=== PATIENT | male | born 1945 | race Caucasian/White ===

== ENCOUNTER 2018-12-12 09:14 | Day surgery (SDC) | payer OTHER ==
[~2018-12-12] VITALS: Ht 180.3 cm; Wt 108.9 kg
[~2018-12-12 09:14] MED LIST: HYDROmorphone 2 MG/ML VIAL IV PRN; LIDOCAINE 1% PF 2 ML VIAL. ID PRN; MORPHINE SULFATE 2 MG/ML VIAL. IV PRN; ONDANSETRON PF 4 MG/2 ML VIAL. IV PRN; PROCHLORPERAZINE 10 MG/2 ML VIAL. IV PRN; fentaNYL PF VIAL 100 MCG/2 ML VIAL IV PRN
[2018-12-12] MEDS ORDERED: ASPI-630 PO (09:45)
[2018-12-12] MEDS ORDERED: SIMV80TA17 PO (09:45)
[2018-12-12] MEDS ORDERED: METO-269 PO (09:45)
[2018-12-12] MEDS ORDERED: MULT1TAB52 PO (09:50)
[2018-12-12] MEDS ORDERED: TAMS0.4C97 PO (09:50)
[2018-12-12] MEDS ORDERED: LISI10TA2 PO (09:50)
[2018-12-12] MEDS ORDERED: LACT1CAP2 PO (09:50)
[2018-12-12] MEDS ORDERED: SERT100T8 PO (09:50)
[2018-12-12] MEDS ORDERED: HYDR12.575 PO (09:50)
[2018-12-12] MEDS ORDERED: METH-37 PO (09:50)
[2018-12-12] MEDS ORDERED: DOCU100C28 PO (09:50)
[2018-12-12] MEDS ORDERED: CHLORHEXIDINE 0.12% 15 ML MOUTHWASH. SWSP ONE (10:00)
[2018-12-12] MEDS ORDERED: OXYMETAZOLINE 0.05% NASAL SPRAY 30ML BOTTLE. NS ONE (10:00)
[2018-12-12] MEDS: IV RINGERS,LACTATED 1000ML 1,000 ML IV SCH ×2 (10:13→14:24)
[2018-12-12] MEDS ORDERED: PROPOFOL 20 ML IV ONE ×2 (10:35→12:48)
[2018-12-12] MEDS ORDERED: fentaNYL PF VIAL 100 MCG/2 ML VIAL ONE (10:35)
[2018-12-12] MEDS ORDERED: ROCURONIUM 50 MG/5 ML VIAL. ONE (10:35)
[2018-12-12] MEDS ORDERED: DEXAMETHASONE SOD PHOS 4 MG/ML VIAL ONE (10:35)
[2018-12-12] MEDS ORDERED: SUCCINYLCHOLINE 200 MG/10 ML VIAL. ONE (10:35)
[2018-12-12] MEDS ORDERED: LIDOCAINE 2% PF 5 ML VIAL. ONE (10:35)
[2018-12-12] MEDS ORDERED: BUPIVAC MPF-EPI 0.5%-1:200000 30 ML VIAL. ONE (11:19)
[2018-12-12] MEDS ORDERED: SURGICEL HEMOSTAT 4X8 EACH. ONE (11:19)
[2018-12-12] MEDS ORDERED: BACITRACIN 50,000 UNIT in IV NORMAL SALINE 500ML BAG 500 ML IRR ONE (11:30)
[2018-12-12] MEDS ORDERED: CHLORHEXIDINE 0.12% 15 ML MOUTHWASH. ONE (11:32)
[2018-12-12] MEDS ORDERED: ceFAZolin 2GM PREMIX 2 GM/50 ML BAG IV ONE (12:00)
[2018-12-12] MEDS ORDERED: ePHEDrine PF IN SALINE 50 MG/10 ML SYRINGE. IV ONE (12:43)
[2018-12-12] MEDS ORDERED: PHENYLEPHRINE in 0.9% NACL PF 1 MG/10 ML SYRINGE. IV ONE (12:50)
[2018-12-12] MEDS ORDERED: VASOPRESSIN 20 UNIT/ML VIAL. ONE (13:02)
[2018-12-12] MEDS ORDERED: NEOSTIGMINE 10 MG/10 ML VIAL. ONE (13:14)
[2018-12-12] MEDS ORDERED: SEVOFLURANE 61 TO 120 MINUTES. IH ONE (13:14)
[2018-12-12] MEDS ORDERED: GLYCOPYRROLATE 1 MG/5 ML VIAL. ONE (13:14)
[2018-12-12] MEDS ORDERED: ONDANSETRON PF 4 MG/2 ML VIAL. ONE (13:16)
[2018-12-12] MEDS ORDERED: ALBUTEROL SULFATE 2.5 MG/3 ML NEBU. NEB ONE (14:30)
--- NOTE | 2018-12-12 14:37 | PDOC4 ---
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
[2018-12-12] MEDS ORDERED: HYDROcodone/APAP 5/325MG 1 TAB TABLET ONE (15:07)
--- NOTE | 2018-12-12 15:11 | OP ---
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 ATTENDING PHYSICIAN: Al Ornelas DMD PREOPERATIVE DIAGNOSES: Chronic obstructive pulmonary disease; obesity; obstructive sleep apnea; hypertension; caries, nonrestorable teeth #3, 18, 20, 22. He has irregular bony alveolus in all 4 quadrants. He also has bilateral mandibular micah. POSTOPERATIVE DIAGNOSES: Chronic obstructive pulmonary disease; obesity; obstructive sleep apnea; hypertension; caries, nonrestorable teeth #3, 18, 20, 22. He has irregular bony alveolus in all 4 quadrants. He also has bilateral mandibular micah. PROCEDURES PERFORMED: Surgical removal of teeth #3, 18, 20, 22; performing four quadrants of alveoloplasty and last procedure was surgical removal of bilateral mandibular micah. BRIEF HISTORY: The patient is a 73-year-old gentleman referred to our clinic for extraction of aforementioned teeth and preprosthetic surgery. Considering his multiple comorbidities, the setting of the care was escalated to the OR. The patient was affable with our plan. H and P was performed. Permit was obtained. DRAINS PLACED: None. SPECIMEN SENT: None. Teeth were disposed in the OR. COMPLICATIONS: He has a sinus exposure 5 x 5 mm at tooth #3 following the removal and debridement of the necrotic bone. This was repaired intraoperatively with Surgicel and subperiosteal releasing of the buccal flap and oversewing with 3-0 Vicryl sutures in a running locked fashion. ESTIMATED BLOOD LOSS: Approximately 50 mL. OPERATIVE DESCRIPTION: After the history and physical was updated in the preoperative holding area, the patient was transported by the Anesthesia Service to the operating suite, placed in a supine position. General anesthesia was induced. The patient was intubated with nasal CECILIA intubation in the right naris without complication. The tube was secured in the traditional instructional systems specialist head wrap and moistened throat pack was then placed. Timeout was initiated. All perioperative staff was in agreeance. Local anesthesia in the form of 0.5% Marcaine, 1:200,000 epinephrine was administered with 25 mL. At the culmination of the procedure, an additional 5 mL for a total of 30 mL were administered. Surgery began with a bite block placed on the left side and a 15 blade and a full thickness mucoperiosteal flap was reflected buccally in the upper right, lower right, upper left and lower left quadrants. The teeth were luxated, elevated and extracted without complication. Bony alveoloplasty was performed to remove irregularities and undercuts in the upper right, upper left, lower right and lower left quadrants without complication. Apical necrotic tissue was curetted and removed. The 5 x 5 mm sinus exposure at site #3 in the upper right quadrant was noted, lavaged and suctioned. The buccal flap was extended. Subperiosteal releasing incisions were created and the site was then draped with Surgicel and oversewn with 3-0 Vicryl suture in a running locked fashion. The bilateral lingual mandibular micah were then exposed without complication. They were excised with retraction of soft tissue and rotary instrumentation with copious normal sterile saline. Both right and left were excised without complication. Alveoloplasty was performed in all quadrants with rongeurs and a bone file and copious normal sterile saline irrigation. The remaining three quadrants were closed with running locked 3-0 chromic gut sutures. The patient was then found to be hemostatic. The oral cavity was lavaged and suctioned. Moistened throat pack was removed and OG was passed and the stomach was decompressed. The patient was then returned to the care of anesthesia where he was awakened and extubated without complication and transported to the PACU in stable condition. AL ORNELAS DMD DR: Anastasiya JOB#: [id number] / [id number]
[2018-12-12 15:30] VITALS: BP 129/55
[2018-12-12] MEDS ORDERED: HYDROcodone/APAP 5/325MG 1 TAB TABLET PO ONE (15:30)
== END 2018-12-12 16:02 | disposition home or self-care (01) ==
LOC: SURG 09:14
PROVIDERS: ATTEND Dentist Oral and Maxillofacial Surgery
DX: K02.9 Dental caries, unspecified (principal); J44.9 Chronic obstructive pulmonary disease, unspecified; G47.33 Obstructive sleep apnea (adult) (pediatric); I10 Essential (primary) hypertension; F41.9 Anxiety disorder, unspecified; F32.9 Major depressive disorder, single episode, unspecified; Z79.82 Long term (current) use of aspirin; Z98.890 Other specified postprocedural states; Z87.891 Personal history of nicotine dependence
CPT/HCPCS: 41874; 94640; A7015; J0171; J0330; J0696; J1100; J2001; J2370; J2405; J2704; J2710; J3010; J3490; J7040; J7120; J7613